=== PATIENT | male | born 1975 | race Caucasian/White ===

== ENCOUNTER 2017-08-02 13:13 | Emergency (ER) | payer MEDICAID ==
[~2017-08-02] VITALS: Ht 177.8 cm; Wt 61.4 kg
[2017-08-02 13:23] VITALS: BP 130/87
== END 2017-08-02 14:18 | disposition home or self-care (01) ==
LOC: ED 14:12
DX: S83.411A Sprain of medial collateral ligament of right knee, initial encounter (principal); F10.220 Alcohol dependence with intoxication, uncomplicated; X58.XXXA Exposure to other specified factors, initial encounter; Y93.89 Activity, other specified; Y92.89 Other specified places as the place of occurrence of the external cause; Y99.9 Unspecified external cause status
CPT/HCPCS: 99284

== ENCOUNTER 2018-01-07 01:12 | Emergency (ER) | payer MEDICAID ==
[~2018-01-07] VITALS: Ht 177.8 cm; Wt 55.7 kg
[2018-01-07 03:18] VITALS: BP 111/84
== END 2018-01-07 03:20 | disposition home or self-care (01) ==
LOC: ED 03:17
DX: S06.0X0A Concussion without loss of consciousness, initial encounter (principal); G89.11 Acute pain due to trauma; M79.642 Pain in left hand; F10.20 Alcohol dependence, uncomplicated; W22.01XA Walked into wall, initial encounter; Y93.89 Activity, other specified; Y92.148 Other place in prison as the place of occurrence of the external cause; Y99.8 Other external cause status; Z72.89 Other problems related to lifestyle; Z91.14 Patient's other noncompliance with medication regimen; Z60.9 Problem related to social environment, unspecified
CPT/HCPCS: 70450; 99284

== ENCOUNTER 2018-02-18 22:56 | Emergency (ER) | payer MEDICAID ==
[~2018-02-18] VITALS: Ht 175.3 cm; Wt 57.3 kg
[2018-02-18 23:17] VITALS: BP 114/87
[2018-02-19] MEDS ORDERED: IBUPROFEN 200 MG TABLET ONE (00:38)
[2018-02-19] MEDS ORDERED: ACETAMINOPHEN 500 MG TABLET ONE (00:38)
[2018-02-19] MEDS ORDERED: IBUPROFEN 200 MG TABLET PO ONE (01:00)
[2018-02-19] MEDS ORDERED: ACETAMINOPHEN 500 MG TABLET PO ONE (01:00)
== END 2018-02-19 01:01 | disposition home or self-care (01) ==
LOC: ED 02-19 00:44
DX: M79.621 Pain in right upper arm (principal); M25.521 Pain in right elbow
CPT/HCPCS: 99283

== ENCOUNTER 2018-11-05 17:52 | Emergency (ER) | payer MEDICAID ==
[~2018-11-05] VITALS: Ht 177.8 cm; Wt 61.3 kg
[2018-11-05 17:55] VITALS: BP 115/81
--- NOTE | 2018-11-05 19:01 | NUR ---
Patient/Caregiver given discharge instructions and they have confirmed that they understand the instructions. Patient ambulatory with steady gait.
== END 2018-11-05 19:03 | disposition home or self-care (01) ==
LOC: ED 19:00
DX: M70.41 Prepatellar bursitis, right knee (principal); F17.200 Nicotine dependence, unspecified, uncomplicated; Z72.9 Problem related to lifestyle, unspecified; Y93.89 Activity, other specified
CPT/HCPCS: 99283

== ENCOUNTER 2019-12-22 10:02 | Emergency (ER) | payer MEDICAID ==
[~2019-12-22] VITALS: Ht 175.3 cm; Wt 60.4 kg
[2019-12-22 10:04] VITALS: BP 118/91
--- NOTE | 2019-12-22 10:15 | NUR ---
PT STATES OVER THE LAST 3 DAYS HE HAS HAD SKIN BITES THAT HAVE BECOME INFECTED. PT WITH MULTIPLE SMALL LESIONS ON SKIN. PT HOMELESS, UNKEPT. ERMD IN TO EVAL PT. PLAN TO MEDICATE AND DC
[2019-12-22] MEDS ORDERED: ACETAMINOPHEN 500 MG TABLET ONE (10:23)
[2019-12-22] MEDS ORDERED: ACETAMINOPHEN 500 MG TABLET PO ONE (10:30)
== END 2019-12-22 10:43 | disposition home or self-care (01) ==
LOC: ED 10:30
DX: S50.812A Abrasion of left forearm, initial encounter (principal); S50.811A Abrasion of right forearm, initial encounter; S30.810A Abrasion of lower back and pelvis, initial encounter; S80.812A Abrasion, left lower leg, initial encounter; S80.811A Abrasion, right lower leg, initial encounter; F17.200 Nicotine dependence, unspecified, uncomplicated; X58.XXXA Exposure to other specified factors, initial encounter; Y93.89 Activity, other specified; Y92.89 Other specified places as the place of occurrence of the external cause; Y99.8 Other external cause status
CPT/HCPCS: 99283

== ENCOUNTER 2019-12-27 13:10 | Emergency (ER) | payer MEDICAID ==
[~2019-12-27] VITALS: Ht 175.3 cm; Wt 60.1 kg
[2019-12-27 13:30] VITALS: BP 91/64
[2019-12-27] MEDS ORDERED: CLINDAMYCIN 300 MG CAPSULE ONE (13:40)
[2019-12-27] MEDS ORDERED: PLEASE ENTER HEIGHT AND WEIGHT AND ALLERGIES MC SCH (13:48)
[2019-12-27 13:53] LABS: BASOPHILS # (AUTO) 0.01 x10^3/uL (0-0.1); BASOPHILS % (AUTO) 0 % (0-1); EOSINOPHILS # (AUTO) 0.07 x10^3/uL (0-0.4); EOSINOPHILS % (AUTO) 1 % (1-7); LYMPHOCYTES # (AUTO) 0.97 x10^3/uL (1-3.4); LYMPHOCYTES % (AUTO) 7 % (22-44); MD NO; MEAN CORPUSCULAR HEMOGLOBIN 35.6 pg (27.5-34.5); MEAN CORPUSCULAR HGB CONC 34.2 g/dL (33.2-36.2); MEAN CORPUSCULAR VOLUME 104.3 fL (81-97); MONOCYTES # (AUTO) 0.58 x10^3/uL (0.2-0.8); MONOCYTES % (AUTO) 4 % (2-9); NEUTROPHILS # (AUTO) 12.01 x10^3/uL (1.8-6.8); NEUTROPHILS % (AUTO) 88 % (42-75); PLATELET COUNT 279 x10^3/uL (130-400); RED CELL DISTRIBUTION WIDTH 12.9 % (9.4-14.8)
[2019-12-27] MEDS ORDERED: CLINDAMYCIN 300 MG CAPSULE PO ONE (14:00)
[2019-12-27] MEDS ORDERED: SODIUM CHLORIDE 0.9% 1,000ML IVBOLUS ONE (14:00)
[2019-12-27] MEDS ORDERED: SODIUM CHLORIDE FLUSH 10ML SYR IVF ONE (14:00)
[2019-12-27 14:01] LABS: ALBUMIN 2.8 g/dL (3.4-5.0); ANION GAP 8 mmol/L (5-15); CHLORIDE 106 mmol/L (98-107)
--- NOTE | 2019-12-27 14:01 | NUR ---
PT LAYING ON GURNEY CALM & MOSTLY COMFORTABLE, ABLE TO DOZE OFF, RESPONDS APPROP TO STAFF, NAD, REFUSED PIV & REQUESTED PO FLUIDS INSTEAD- DR MEREDITH AWARE, COMFORT MEASURES PROVIDED, CALL LIGHT WITHIN REACH.
--- NOTE | 2019-12-27 15:17 | NUR ---
Patient given discharge instructions and Rx, they have confirmed that they understand the instructions. Patient ambulatory with steady gait.
== END 2019-12-27 15:53 | disposition home or self-care (01) ==
LOC: MERGE 13:10 → ED 14:55
DX: L73.9 Follicular disorder, unspecified (principal); R06.02 Shortness of breath; F17.200 Nicotine dependence, unspecified, uncomplicated
CPT/HCPCS: 36415; 71045; 80048; 82040; 85025; 99284